=== PATIENT | male | born 1980 | race Caucasian/White ===

== ENCOUNTER 2023-01-10 12:51 | Outpatient (CLI) | payer OTHER ==
--- NOTE | 2023-01-10 18:51 | SLEEP CARE CONSULTATION ---
Information from patient questionnaire entered by Rand Harrison. I have reviewed and concur with the information entered by Rand Harrison. This document represents the service I personally performed and the decisions made by me, Cami Gallaghre MD, [facility]. History of Present Illness Service Date and Time: 01/10/2023 1251 Reason for Visit: New patient Chief Complaint: reports: Unrefreshed sleep, Snoring, Observed pauses in breathing, Fatigue Date of Onset: 1+YRS Usual bedtime: 9PM Time it takes to fall asleep: 15-20MIN Snores at night: Yes Observed to quit breathing while asleep: Yes Sleeps alone due to snoring: No Number of times waking at night: 2-3 Reasons for waking at night: reports: Snoring, Gasping for air, Bathroom Toss, Turn, or Twitch while sleeping: Yes Recalls having dreams: Yes Usually gets out of bed at: 0530 Feels refreshed in the morning: No Morning headache: No Sleepy or fatigued during the day: Yes Ever fallen asleep while driving: Yes Takes day naps: No Dreams during day naps: No Prior sleep studies: No Additional HPI information: I had the pleasure of seeing Mr. Hammond today regarding the possibility of him having a sleep disorder. As you know, he is a 42-year-old gentleman who complains of loud snore, observed apneas, unrefreshed sleep, and persistent fatigue, for about 1 year. The patient tells me that he normally goes to bed around 9 pm, and it takes him approximately 15 - 20 minutes to fall asleep. He has not been told that he snores loudly and irregularly at night. He has also never been observed to stop breathing in his sleep. His can still sleep in the same bed. He can recall waking up on the average of 2 - 3 times during the night. Most of the time he wakes up because of having to use the bathroom. He has awakened occasionally because of his own snoring, choking, and having to gasp for air. There is a lot of tossing and turning in his sleep. He has somniloquy (sleep talking) but not somnambulism (sleep walking). Generally, he can recall having dreams. In the morning he usually gets up out of the bed around 5:30 a.m. not feeling refreshed nor rested. He usually does not have a morning headache. During the day he complains of feeling sleepy and fatigued. His score on [place] Sleepiness Scale is 19 out of 24. He has fallen asleep while driving and has gone out of the [place]. He usually does not take naps during the day. He reports having impaired concentration during the day. - Parasomnia Symptoms Ever been unable to move upon waking from sleep: Yes Walks in sleep: No Talks in sleep: Yes Ever acted out dreams in sleep: Yes Ever felt weak in the knees when startled or emotional: No Bothered by creepy, crawly, restless sensations in legs: No Problems with memory or concentration: Yes Subjective Initial [place] Sleepiness Scale score: 18 (12/09/22) Past Medical History Past Medical History: reports: Other (LOW TESTOSTERONE) Social History The patient's occupation is a [employer]. Patient is and lives in . Have you smoked in the past 12 months: No Alcohol use: Yes Alcohol amount and frequency: 1-2 ONCE A WEEK Caffeine use: Yes Caffeine amount and frequency: 1CIP ONCE A DAY Family History Family history of sleep disordered breathing: Yes Family Hx Sleep Apnea: Mother: Snoring, Father: Snoring, Grandparent: Snoring Allergies and Home Medications Known drug allergies: No Drug allergies reviewed: Yes Home medication list reviewed: Yes Review of Systems Weight gain over past 5 years: 10 Cardiovascular: denies: high blood pressure, palpitations, chest pain, irregular heart rate or pulse, leg or foot swelling, have to sleep sitting up, other Respiratory: denies: shortness of breath, wheeze, sputum production, chronic cough, other Gastrointestinal: denies: heartburn, difficulty swallowing, nausea, vomitting, diarrhea, abdominal pain, other Urinary: denies: incontinence, frequency, urgency, impotence, other Neurological: reports: headaches Psychiatric: denies: Attention Deficit Hyperactivity, anxiety, depression, mood disorder, claustrophobia, other Ear/Nose/Throat: denies: nasal congestion, sinus problems, nose bleeds, dry mo uth/throat, hoarseness, injury to nose, tonsillectomy, wisdom teeth removed, other Endocrine: reports: sluggishness Musculoskeletal: denies: joint pain, neck pain, back pain, joint swelling, muscle pain or cramping, mobility problems, other Immunologic: denies: sneezing, rash, itching, allergies to food or environment, other Physical Exam Vital signs obtained and entered by: RAND Prieto MA Blood Pressure: 132/80 (LEFT ARM) Cuff size: regular Heart Rate: 99 O2 Saturation: 97 Height: 5 ft 11 in Weight: 216 lb 12.8 oz Body Mass Index: 30.2 BMI Classification: Obese Neck circumference: 16.75 Mood/affect: normal HEENT: No craniofacial malformation Nostrils: patent to airflow Turbinates: normal Septum: midline Mouth and throat: narrow oropharynx Soft palate: long Hard palate: normal Uvula: normal Uvula visualization: 50% Mallampati Class II Tongue: normal in size Tonsils: small Chin and jaw: normal size and position Neck: normal w/o lymphadenopathy or thyromegaly Heart: regular rate and rhythm Lungs: clear bilaterally Extremities: no edema or clubbing Neurologic: intact Impression and Plan IMPRESSION: 1. Obstructive Sleep Apnea-Hypopnea Syndrome, as suggested by history of loud and irregular snoring, observed cessation of breath while asleep, frequent awakenings during the night, unrefreshed sleep, cognitive impairment, and daytime hypersomnolence. Narrow oropharynx and obesity are common predisposing factors for obstructive sleep apnea-hypopnea syndrome. I recommend proceeding to polysomnography to confirm the diagnosis and to assess severity. If he has significant sleep disordered breathing, a manual CPAP titration study will also be performed to find the optimal treatment pressure. I informed the patient of what the sleep studies involve and after some discussion, he agreed to proceed. Plan: 1. Schedule polysomnography + manual CPAP titration study and return in 1 to 2 weeks after the study to discuss result and initiate therapy. 2. Avoid long distance driving or when feeling sleepy. 3. Avoid alcohol, sedative and muscle relaxant around bedtime. 4. Attempt to lose weight. Follow up with Sleep Care in: 1-2 months Visit Type: In Office Time Spent with Patient (minutes): 15 Provider Statement: I spent 100% of the Face to Face Visit with the patient with greater than 50% spent counseling the patient and coordination of care.
[2023-01-10 18:52] VITALS: BP 132/80
== END 2023-01-10 12:52 | disposition home or self-care (01) ==
LOC: SC 12:51
PROVIDERS: ATTEND Internal Medicine Pulmonary Disease
DX: R06.83 Snoring (principal); G47.8 Other sleep disorders; R06.81 Apnea, not elsewhere classified; G47.10 Hypersomnia, unspecified; E66.9 Obesity, unspecified; Z68.30 Body mass index [BMI] 30.0-30.9, adult
CPT/HCPCS: 99202; 99212

== ENCOUNTER 2023-01-31 20:29 | Outpatient (CLI) | payer OTHER | END 2023-01-31 20:30 | disposition home or self-care (01) | LOC: SC 20:29 | PROVIDERS: ATTEND Internal Medicine Pulmonary Disease | DX: G47.33 Obstructive sleep apnea (adult) (pediatric) (principal); E66.3 Overweight; Z68.30 Body mass index [BMI] 30.0-30.9, adult | CPT/HCPCS: 95810 ==

== ENCOUNTER 2023-02-09 11:01 | Outpatient (CLI) | payer OTHER ==
[2023-02-09 11:55] VITALS: BP 110/82
--- NOTE | 2023-02-09 11:55 | SLEEP CARE CONSULTATION ---
Information from patient questionnaire entered by Rand Harrison. I have reviewed and concur with the information entered by Rand Harrison. This document represents the service I personally performed and the decisions made by , Noemi Moyer ARNP. History of Present Illness Service Date and Time: 02/09/2023 1101 Initial [place] Sleepiness Scale score: 18 (12/09/22) Current [place] Sleepiness Scale score: 15 (02/09/23) Additional HPI information: RONDA BRASHER returns for follow up and results of the recently performed polysomnography. I explained the pathophysiology behind obstructive sleep apnea. We then spent quite a bit of time discussing different treatment options. For mild obstructive sleep apnea, surgery and oral appliance are alternatives to nasal CPAP therapy but in moderate or severe cases, nasal CPAP is the most effective and reliable treatment. I reviewed the impact of weight changes on sleep apnea and strongly recommended losing weight. After some discussion, the patient opted to go with the nasal CPAP therapy. Nasal autoCPAP set at 4-15 cmH20 will be ordered with rationale explained. A manual titration study will be ordered if unable to find optimal pressure with office adjustments. I explained how CPAP machine works and what to expect when using the machine. Using CPAP every night in order to get used to it was emphasized. Patient advised to put CPAP mask on before getting into bed so as not to fall asleep without CPAP. To assist acclimation to CPAP use, it could also be used for a short time during day while reading or watching TV. The patient was instructed to call the CPAP supplier to discuss any mechanical problem that may occur. If the mask given is uncomfortable or is difficult to keep on through the night even with adjustment, contact the CPAP supplier as many will replace with another mask style if notified before 30 days. If snoring or perceives is not getting enough air or too much air from the machine, notify this office. Patient counseled not drink alcohol less than 4 hours before bedtime as it can increase snoring and apnea. Patient was cautioned about risks of drowsy driving until sleepiness symptoms resolve. Sleep Study - Results Type of Sleep Study: Polysomnography (COMPLETED 01/31/23) Prior sleep studies: No Polysomnography/Home Sleep Study results: IMPRESSION: The quality of the study is good. The patient had normal sleep efficiency. The sleep architecture was abnormal for sleep fragmentation and reduced amount of time spent in REM and slow wave sleep (N3). Respiratory monitoring showed severe obstructive sleep apnea-hypopnea (AHI = 46.4) associated with frequent arousals, oxyhemoglobin desaturation and mild hypoxia (hunter oxygen saturation of 83%). The respiratory events occurred more frequently during supine sleep (supine AHI = 72.7; non-supine = 26.70). Snore was moderate to loud in intensity. There was no significant periodic leg movement of sleep. Cardiac rhythm was normal sinus rhythm without significant arrhythmia. No abnormal behavior (parasomnia) observed during the night. Allergies and Home Medications Known drug allergies: No Drug allergies reviewed: Yes Home medication list reviewed: Yes (no changes) Allergy and home medication list: Allergies No Known Drug Allergies Allergy Review of Systems Review of systems same as previous: Yes (no changes) Physical Exam Vital signs obtained and entered by: RAND Prieto MA Blood Pressure: 110/82 (left arm) Cuff size: regular Heart Rate: 88 O2 Saturation: 97 Height: 5 ft 11 in Weight: 218 lb 3.2 oz Body Mass Index: 30.4 BMI Classification: Obese Impression and Plan 1. Obstructive Sleep Apnea-Hypopnea Syndrome, severe, with lowest oxygen saturation of 83%. Obviously this is the cause of the patients symptoms of unrefreshed sleep, and excessive daytime sleepiness. As mentioned above, the patient will be started on nasal autoCPAP therapy with pressure set at 4-15 cmH2 O. A manual titration study will be completed if unable to find optimal treatment pressure with office adjustments. Compliance guidelines also reviewed. A copy of compliance guidelines will be given for reference at check out. Because the apnea is more severe supine, I instructed to avoid sleeping supine using pillow positioning until able to start CPAP use. 2. Hypoxemia, mild, with a hunter oxygen saturation of 83% and 15.6 minutes spent under 90%. His baseline oxygen saturation was normal with an average oxygen saturation of 94%. * Nasal auto CPAP therapy, pressure at 4-15 cm H2O. * Attempt to lose weight. * Avoid alcohol consumption near bedtime. * Avoid supine sleep until using CPAP. * The patient is again cautioned about driving until sleepiness completely resolves. * Return one month after CPAP obtained. I will assess response to therapy and compliance at that time. Counseling Topics: Weight loss health impact Visit Type: In Office Time Spent with Patient (minutes): 20 Provider Statement: I spent 100% of the Face to Face Visit with the patient with greater than 50% spent counseling the patient and coordination of care.
== END 2023-02-09 11:02 | disposition home or self-care (01) ==
LOC: SC 11:01
PROVIDERS: ATTEND Nurse Practitioner Family
DX: G47.33 Obstructive sleep apnea (adult) (pediatric) (principal); R09.02 Hypoxemia; E66.9 Obesity, unspecified; Z68.30 Body mass index [BMI] 30.0-30.9, adult
CPT/HCPCS: 99212; 99213

== ENCOUNTER 2023-04-25 07:37 | Outpatient (CLI) | payer OTHER ==
[~2023-04-25 07:37] MED LIST: GADOBUTROL 10 MMOL/10 ML VIAL ONE
--- NOTE | 2023-04-25 12:04 | MRI Report ---
PROCEDURE: BRAIN W/WO INDICATIONS: ABN HORMONE LEVELS CONTRAST: Gadavist, 9.3 mL TECHNIQUE: Noncontrast sagittal and axial FLAIR, axial gradient echo, axial diffusion and ADC through the brain. Thin-slice sagittal and coronal T1 spin echo, coronal T2 fast spin echo through the pituitary. Aft er the administration contrast, optional dynamic coronal T1 spin echo, thin-slice coronal and sagitta l T1 spin echo images through the pituitary fossa; axial T1 spin echo with fat saturation through the brain. COMPARISON: None. FINDINGS: Image quality: Excellent. Pituitary Gland: Pituitary gland is normal in size and placement. CSF Spaces: Ventricles are normal in size and shape. Basal cisterns are patent. No extra-axial flu id collections. Brain: No intracranial bleeds or mass effects. No abnormal intracranial enhancement. Dos Santos-white ma tter interface is intact. Diffusion weighted images demonstrate no acute ischemic insults. Brainste m is normal. Normal intravascular flow voids are present. Skull and face: Calvarial marrow is normal in signal. Orbits appear normal. Sinuses: Sinuses and mastoids are clear. IMPRESSION: 1. No evidence of pituitary mass. 2. Otherwise unremarkable brain MRI with and without contrast. No acute intracranial process. Reviewed by: Kevin Rubi MD on 04/25/2023 12:02 PM PDT Approved by: Kevin Rubi MD on 04/25/2023 12:02 PM PDT Station ID: [id number]
[2023-04-25] MEDS ORDERED: GADOBUTROL 10 MMOL/10 ML VIAL IVP ONE (19:41)
== END 2023-04-25 07:38 | disposition home or self-care (01) ==
LOC: DI 07:37
PROVIDERS: ATTEND General Practice
DX: R89.1 Abnormal level of hormones in specimens from other organs, systems and tissues (principal)
CPT/HCPCS: 70553; A9585

== ENCOUNTER 2023-04-27 09:47 | Outpatient (CLI) | payer OTHER ==
--- NOTE | 2023-04-27 10:25 | Sleep Patient Instructions ---
Sleep Center Visit Summary - Patient Visit Information Reason for Visit: First compliance follow up for CPAP therapy - Patient Instructions Additional Instructions: You were here for follow up of CPAP therapy. You will be continued on CPAP therapy with pressure at 6-9 cmH2O. Please let us know if the pressure change is uncomfortable and we can make further adjustments of the pressure. We will also put in the mask refitting to your supplier and they should be giving you a call. A prescription for a travel machine has been completed as requested. You should follow up with sleep care in 1-2 months. You may contact us sooner for any questions or concerns. - Clinic Information Contact: [facility] [address] [place] [address] [email or web address] T: [phone]
--- NOTE | 2023-04-27 10:29 | SLEEP CARE CONSULTATION ---
Information from patient questionnaire entered by Rand Harrison. I have reviewed and concur with the information entered by Rand Harrison. This document represents the service I personally performed and the decisions made by me, Noemi Moyer ARNP. History of Present Illness Service Date and Time: 04/27/2023 0947 Previous diagnosis: Severe, Obstructive Sleep Apnea-Hypopnea Syndrome AHI: 46.4 (in 2022) Reason for follow up: first compliance Equipment type: CPAP (RESMED Airsense 11, s/u 02/2023) Equipment obtained from: Other ([facility]; got initial supplies) Mask style: Nasal pillows Mask brand: Resmed ([id number]) Backup mask available: No (will keep old mask when replaced) Last cushion change: 1 month Prior sleep studies: No Type of Sleep Study: Polysomnography (COMPLETED 01/31/23) HPI additional information: RONDA BRASHER was diagnosed to have severe, AHI 46.4, obstructive sleep apnea-hypopnea syndrome and returned today for CPAP therapy first compliance follow-up. Sleep Study - Results Type of Sleep Study: Polysomnography (COMPLETED 01/31/23) Prior sleep studies: No CPAP Compliance Data - Data Reviewed with Patient Average duration of nightly device use: 4 hours 17 minutes Compliance rate %: 27 (10/22 days used) Current pressure setting (cmH2O): 4-15 (median 5.6, avg 8.5, max 9.3) Average residual AHI: 0.9 Central apnea: 0.5 Obstructive apnea: 0.2 Average large leak: 3.2 L/min Subjective Missed days of use due to: reports: illness (has allergies limiting use) Patient concerns: reports: mask discomfort (soreness in nose from pillows), nasal congestion (from seasonal allergies). denies: aerophagia, air blowing in eyes, mask leak noise, condensation in mask/hose, dry mouth, nose, throat, epistaxis Observed to snore while using device: No Current pressure setting perceived as: comfortable On therapy, patient: reports: sleeping better, awakening more refreshed, being more awake and alert during the day, more rested overall. denies: drowsiness while driving Initial [place] Sleepiness Scale score: 18 (12/09/22) Current [place] Sleepiness Scale score: 8 (04/27/23) Allergies and Home Medications Known drug allergies: No Drug allergies reviewed: Yes Home medication list reviewed: Yes (Aleja) Allergy and home medication list: Allergies No Known Drug Allergies Allergy (Verified 04/25/23 10:45) Review of Systems Review of systems same as previous: Yes (no changes) Physical Exam Vital signs obtained and entered by: RAND Prieto MA Blood Pressure: 136/90 (LEFT ARM) Cuff size: regular Heart Rate: 74 O2 Saturation: 97 Height: 5 ft 11 in Weight: 222 lb 6.4 oz Body Mass Index: 31.0 BMI Classification: Obese Impression and Plan 1. Obstructive Sleep Apnea-Hypopnea Syndrome, severe, with fair treatment compliance and good apnea control. On CPAP therapy, the patient has better sleep quality and is more rested overall. He has been having problems with nasal congestion from his seasonal allergies and unable to breathe through his nose/use the nasal pillows mask. He has also noted some occasional soreness from the pillows cushion. The patients pressure will be changed to autoCPAP 6-9 cmH20 to reflect pressures being used. Patient advised to contact me if pressure change is uncomfortable so that it can be adjusted. Goals for apnea control discussed. He would like to try a full face mask because he cannot use the nasal pillows mask with his seasonal allergies and nasal congestion. I will write for a full face mask fitting. 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 Patient's apnea severity and rationale for treatment to reduce apnea, improve sleep quality and reduce cardiovascular and cerebrovascular events was reviewed. 2. Obesity, unspecified. Currently patients BMI is 31. Obesity increases the risk of apnea, CPAP pressure requirements and overall health risks especially cardiovascular and diabetes. Thus patient is advised to lose weight. * Change auto CPAP pressure to 6-9 cmH2O * Mask refitting for full mask * Travel Machine for deployment in July * Notify me if snoring with mask or feeling that the pressure is too much or too little * Attempt to lose weight * Call this office if any problems using CPAP * Return for follow up in 1-2 months, or sooner if concerns arise Counseling Topics: Spare mask, Weight loss health impact Visit Type: In Office Time Spent with Patient (minutes): 21 Provider Statement: I spent 100% of the Face to Face Visit with the patient with greater than 50% spent counseling the patient and coordination of care.
[2023-04-27 10:32] VITALS: BP 136/90
== END 2023-04-27 09:48 | disposition home or self-care (01) ==
LOC: SC 09:47
PROVIDERS: ATTEND Nurse Practitioner Family
DX: G47.33 Obstructive sleep apnea (adult) (pediatric) (principal); E66.9 Obesity, unspecified; Z68.31 Body mass index [BMI] 31.0-31.9, adult
CPT/HCPCS: 99213

== ENCOUNTER 2023-06-30 09:45 | Outpatient (CLI) | payer OTHER ==
--- NOTE | 2023-06-30 10:07 | Sleep Patient Instructions ---
Sleep Center Visit Summary - Patient Visit Information Reason for Visit: Two month followup for PAP therapy - Patient Instructions Additional Instructions: You were here for follow up of CPAP therapy. You will be continued on CPAP therapy with pressure at 6-9 cmH2O. Your supply company will be faxed the change in mask and need for deployment package of supplies. You should follow up with sleep care in 6 months. You may contact us sooner for any questions or concerns. - Clinic Information Contact: [facility] [address] [place] [address] [email or web address] T: [phone]
--- NOTE | 2023-06-30 10:11 | SLEEP CARE CONSULTATION ---
Information from patient questionnaire entered by Ana Harrison. I have reviewed and concur with the information entered by Ana Harrison. This document represents the service I personally performed and the decisions made by , Noemi Moyer ARNP. History of Present Illness Service Date and Time: 06/30/2023 0945 Previous diagnosis: Severe, Obstructive Sleep Apnea-Hypopnea Syndrome AHI: 46.4 (in 2022) Reason for follow up: other (2 MONTH F/U) Equipment type: CPAP (RESMED Airsense 11, s/u 02/2023) Equipment obtained from: Other ([facility]; setting up for supplies) Mask style: Nasal Mask brand: Resmed (N30i) Backup mask available: Yes (other mask) Last cushion change: 1 month Prior sleep studies: No Type of Sleep Study: Polysomnography (COMPLETED 01/31/23) HPI additional information: RONDA BRASHER was diagnosed to have severe, AHI 46.4, obstructive sleep apnea-hypopnea syndrome and returned today for CPAP therapy two month follow-up. Sleep Study - Results Type of Sleep Study: Polysomnography (COMPLETED 01/31/23) Prior sleep studies: No CPAP Compliance Data - Data Reviewed with Patient Average duration of nightly device use: 6 hours 9 mins Compliance rate %: 3 (3/60 days used) Current pressure setting (cmH2O): 6-9 Average residual AHI: 1 Central apnea: 0.3 Obstructive apnea: 0.3 Hypopnea: 0.3 Average large leak: 0.4 L/min Compliance data discussion: Patient states he used it at least half the days in last month but it is not reflected in the data download. Subjective Missed days of use due to: reports: illness (allergies/nasal congestion limited use) Patient concerns: reports: nasal congestion (because of allergies, not CPAP). denies: aerophagia, mask discomfort, air blowing in eyes, mask leak noise, condensation in mask/hose, dry mouth, nose, throat, epistaxis Observed to snore while using device: No Current pressure setting perceived as: comfortable On therapy, patient: reports: sleeping better, awakening more refreshed, being more awake and alert during the day, more rested overall. denies: drowsiness while driving Initial Carver Sleepiness Scale score: 18 (02/16/23) Current Carver Sleepiness Scale score: 10 (06/30/23) Allergies and Home Medications Known drug allergies: No Drug allergies reviewed: Yes Home medication list reviewed: Yes (no changes) Allergy and home medication list: Allergies No Known Drug Allergies Allergy (Verified 06/29/23 16:21) Review of Systems Review of systems same as previous: Yes (no changes) Physical Exam Vital signs obtained and entered by: ANA Prieto MA Blood Pressure: 124/74 (LEFT ARM) Cuff size: regular Heart Rate: 64 O2 Saturation: 97 Height: 5 ft 11 in Weight: 217 lb 6.4 oz Body Mass Index: 30.3 BMI Classification: Obese Impression and Plan 1. Obstructive Sleep Apnea-Hypopnea Syndrome, severe, with poor treatment compliance and good apnea control. On CPAP therapy, the patient has better sleep quality and is more rested overall. Patient states the data is less than should be on his machine. He is going to get an SD card and inserted in his machine to download the data. He will then bring the SD card in for us to check. 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 He is in need of a 6-month supply package. He would also like to change from the nasal pillows mask to a nasal cushion mask that he obtained on his own online (ResMed AirFit N30i). I will put the change in mask on his prescription as well as request for supplies for the deployment and send a fax to his [employer] company. He is to call us when he gets back into town for follow-up. Patient's apnea se verity and rationale for treatment to reduce apnea, improve sleep quality and reduce cardiovascular and cerebrovascular events was reviewed. 2. Obesity, unspecified. Currently patients BMI is 30.3. Obesity increases the risk of apnea, CPAP pressure requirements and overall health risks especially cardiovascular and diabetes. Thus patient is advised to lose weight. * Continue auto CPAP pressure at 6-9 cmH2O * Supplies for 6 month deployment * Change mask to nasal cushion; ResMed Airfit N30i, medium cushion and headgear * Notify me if snoring with mask or feeling that the pressure is too much or too little * Attempt to lose weight * Call this office if any problems using CPAP * Return for follow up in 6 months, or sooner if concerns arise Counseling Topics: Spare mask, Weight loss health impact Visit Type: In Office Time Spent with Patient (minutes): 20 Provider Statement: I spent 100% of the Face to Face Visit with the patient with greater than 50% spent counseling the patient and coordination of care.
[2023-06-30 10:39] VITALS: BP 124/74; O2SAT 97
== END 2023-06-30 09:46 | disposition home or self-care (01) ==
LOC: SC 09:45
PROVIDERS: ATTEND Nurse Practitioner Family
DX: G47.33 Obstructive sleep apnea (adult) (pediatric) (principal); E66.9 Obesity, unspecified; Z68.30 Body mass index [BMI] 30.0-30.9, adult
CPT/HCPCS: 99212; 99213